=== PATIENT | female | born 1955 | race Caucasian/White ===

== ENCOUNTER 2021-07-02 16:56 | Inpatient (IN) | payer MEDICARE, OTHER ==
[2021-07-02] MEDS ORDERED: Ondansetron PF 4 MG/2 ML Vial ONE (18:12)
[2021-07-02 18:31] LABS: Hemoglobin 11.1 g/dL (12.0-15.5); Mean Corpuscular HGB CONC 30.1 g/dL (32.0-36.0); Mean Corpuscular Hemoglobin 24.2 pg (27.0-33.0); Mean Corpuscular Volume 80.6 fl (81.6-98.3); Mean Platelet Volume 11.5 fl (7.4-10.4); Platelet Count 550 10x3/uL (150-450); RBC Distribution Width 15.9 % (11.5-14.5); Red Blood Cell (RBC) Count 4.58 10x6/uL (3.90-5.03); White Blood Cell (WBC) Count 27.2 10x3/uL (3.5-10.5)
[2021-07-02 18:33] LABS: ALT (SGPT) 86 U/L (8-55); AST (SGOT) 91 U/L (5-34); Alkaline Phosphatase 154 U/L (40-110); Anion Gap 12 mmol/L (10-20); BUN (Urea Nitrogen) 14 mg/dL (9.8-20.1); Bilirubin, Total 0.5 mg/dL (0.2-1.2); Calc. Creatinine Clearance 0 mL/min (70-130); Carbon Dioxide 31 mmol/L (23-31); Chloride 90 mmol/L (98-107); Globulin 3.2 g/dL (2.4-3.5); Glucose 102 mg/dL (80-115); Protein, Total 6.2 g/dL (5.8-8.1); Sodium 129 mmol/L (136-145)
[2021-07-02 18:54] LABS: CKMB 1.1 ng/mL (0-6.6)
[2021-07-02 19:06] LABS: SARS-CoV-2 NAA Rapid Test Not Detected (NotDetected)
[2021-07-02 19:14] LABS: Lymphocytes 12 % (21-51); MDiff Complete? YES; Monocytes 9 % (0-10); Neutrophil 79 % (42-75)
[2021-07-02 19:15] LABS: Anisocytosis SLIGHT = 6-15 cells (100X) (0-5/hpf); Hypochromia SLIGHT = 6-15 cells (100X) (0-5/hpf); Poikilocytosis MODERATE=16-30 cells (100X) (0-5/hpf)
[2021-07-02 19:16] LABS: Elliptocytes SLIGHT = 2-5 cells (100X) (0-1/hpf); Ovalocytes MODERATE= 6-15 cells (100X) (0-1/hpf); Schistocytes SLIGHT = 2-5 cells (100X) (0-1/hpf)
[2021-07-02 19:18] LABS: Giant Platelets SLIGHT; Large Platelets SLIGHT; Platelet Morphology Comment Appears Increased
[2021-07-02] MEDS ORDERED: Azithromycin 500 MG VIAL ONE (20:55)
[2021-07-02] MEDS ORDERED: cefTRIAXone\\ROCEPHIN 1 GM VIAL ONE ×2 (20:55→23:44)
[2021-07-02 23:01] LABS: Bilirubin Neg (Negative); Blood, Urine Negative (Negative); Clarity Clear (Clear); Glucose, Urine (Dipstick) Normal (Negative); Ketone, Urine Negative (Negative); Leukocyte 100 (Negative); Nitrite Negative (Negative); Protein, Urine (Dipstick) 15 mg/dl (Neg-Trace); Urobilinogen Normal mg/dL (Less than 2); pH, Urine 6.5 (5.0-9.0)
[2021-07-02 23:31] LABS: Bacteria/HPF 2+ HPF (None Seen); RBC/HPF 0-3 HPF (0-3)
[2021-07-02 23:32] LABS: Transitional Epithelial 0-3 HPF (None Seen)
[2021-07-02] MEDS ORDERED: Senokot S 8.6-50 MG TAB PO PRN (23:53)
[2021-07-03 00:58] LABS: ALT (SGPT) 74 U/L (8-55); AST (SGOT) 71 U/L (5-34); Albumin 2.8 g/dL (3.4-4.8); Alkaline Phosphatase 136 U/L (40-110); Anion Gap 12 mmol/L (10-20); BUN (Urea Nitrogen) 11 mg/dL (9.8-20.1); Bilirubin, Total 0.3 mg/dL (0.2-1.2); Calc. Creatinine Clearance 0 mL/min (70-130); Calcium 8.6 mg/dL (7.8-10.44); Carbon Dioxide 29 mmol/L (23-31); Chloride 96 mmol/L (98-107); Glucose 100 mg/dL (80-115); Magnesium 1.8 mg/dL (1.6-2.6); Potassium 3.6 mmol/L (3.5-5.1); Protein, Total 5.8 g/dL (5.8-8.1); Sodium 133 mmol/L (136-145)
[2021-07-03] MEDS ORDERED: cefTRIAXone\\ROCEPHIN 1 GM in Sodium Chloride 0.9% 100 ML IVPB SCH (01:00)
[2021-07-03] MEDS: Lactated Ringer's 1,000 ML IV SCH ×2 (01:32→20:47)
[2021-07-03] MEDS: guaiFENesin/Codeine Phosphate 100 mg/10 mg 5 ml UD Cup PO PRN ×2 (01:33→20:48)
[2021-07-03 02:29] LABS: Legionella Urinary Ag Negative (Negative); Strep pneumo Urine Ag NEGATIVE (NEGATIVE)
[2021-07-03] MEDS ORDERED: FLU VACC QS2021-22(65YR UP)/PF 240 MCG/0.7 ML SYRINGE IM ONE (04:30)
[2021-07-03 04:32] LABS: Anion Gap 10 mmol/L (10-20); BUN (Urea Nitrogen) 10 mg/dL (9.8-20.1); Calc. Creatinine Clearance 100 mL/min (70-130); Calcium 8.3 mg/dL (7.8-10.44); Carbon Dioxide 29 mmol/L (23-31); Chloride 98 mmol/L (98-107); Glucose 112 mg/dL (80-115); Potassium 3.7 mmol/L (3.5-5.1); Sodium 133 mmol/L (136-145)
[2021-07-03 04:40] LABS: Troponin I 0.024 ng/mL (< 0.028)
[2021-07-03] MEDS: Acetaminophen 325 MG TAB PO PRN ×2 (05:10→16:43)
[2021-07-03 05:34] LABS: Hemoglobin 10.3 g/dL (12.0-15.5); Mean Corpuscular HGB CONC 30.4 g/dL (32.0-36.0); Mean Corpuscular Hemoglobin 24.8 pg (27.0-33.0); Mean Corpuscular Volume 81.5 fl (81.6-98.3); Mean Platelet Volume 11.3 fl (7.4-10.4); Platelet Count 473 10x3/uL (150-450); RBC Distribution Width 16.1 % (11.5-14.5); Red Blood Cell (RBC) Count 4.16 10x6/uL (3.90-5.03); White Blood Cell (WBC) Count 22.7 10x3/uL (3.5-10.5)
[2021-07-03 07:25] LABS: Band 10 % (5-11); Lymphocytes 9 % (21-51); Monocytes 10 % (0-10); Neutrophil 70 % (42-75); Reactive Lymphocytes 1 % (0-10)
[2021-07-03 07:27] LABS: Anisocytosis MODERATE=16-30 cells (100X) (0-5/hpf); Microcytosis MODERATE=15-30 cells (100X) (0-5/hpf); Ovalocytes MODERATE= 6-15 cells (100X) (0-1/hpf); Poikilocytosis SLIGHT = 6-15 cells (100X) (0-5/hpf)
[2021-07-03 07:28] LABS: Polychromasia SLIGHT = 2-3 cells (100X) (0-2/hpf)
[2021-07-03 07:30] LABS: Large Platelets MODERATE; Platelet Clumps SLIGHT; Platelet Morphology Comment Appears Increased; Toxic Granulation SLIGHT
[2021-07-03 07:31] LABS: MDiff Complete? YES
[2021-07-03] MEDS: Enoxaparin Sodium 40 MG/0.4 ML SYRINGE SC SCH (09:42)
[2021-07-03] MEDS: cefTRIAXone\\ROCEPHIN 2 GM in Sodium Chloride 0.9% 100 ML IVPB SCH (20:49)
[2021-07-03] MEDS: Azithromycin 500 MG in Sodium Chloride 0.9% 250 ML 250 ML IVPB SCH (20:49)
[2021-07-03] MEDS ORDERED: Communication Order-Pharmacy FS SCH (23:46)
[2021-07-04] MEDS: guaiFENesin/Codeine Phosphate 100 mg/10 mg 5 ml UD Cup PO PRN ×2 (03:25→20:15)
[2021-07-04 05:09] LABS: Anion Gap 13 mmol/L (10-20); BUN (Urea Nitrogen) 7 mg/dL (9.8-20.1); CRP (Inflammatory) 8.95 mg/dL (= or < 0.5); Calc. Creatinine Clearance 107 mL/min (70-130); Calcium 8.5 mg/dL (7.8-10.44); Carbon Dioxide 29 mmol/L (23-31); Chloride 99 mmol/L (98-107); Glucose 95 mg/dL (80-115); Potassium 4.2 mmol/L (3.5-5.1); Sodium 137 mmol/L (136-145)
[2021-07-04 05:41] LABS: #Basophils 0.1 10x3/uL (0.0-0.2); #Eosinphils 0.3 10x3/uL (0.0-0.5); #Monocytes 1.4 10x3/uL (0.0-1.1); #Neutrophils 15.3 10x3/uL (1.5-8.4); %Basophils 0.3 % (0.0-2.0); %Eosinophils 1.5 % (0.0-6.0); %Lymphocytes 11.1 % (18.0-47.0); %Monocytes 7.3 % (0.0-10.0); %Neutrophils 78.4 % (40.0-75.0); Hemoglobin 10.1 g/dL (12.0-15.5); Mean Corpuscular HGB CONC 29.6 g/dL (32.0-36.0); Mean Corpuscular Hemoglobin 24.7 pg (27.0-33.0); Mean Corpuscular Volume 83.4 fl (81.6-98.3); Mean Platelet Volume 11.1 fl (7.4-10.4); Platelet Count 471 10x3/uL (150-450); RBC Distribution Width 16.3 % (11.5-14.5); Red Blood Cell (RBC) Count 4.09 10x6/uL (3.90-5.03); White Blood Cell (WBC) Count 19.5 10x3/uL (3.5-10.5)
[2021-07-04] MEDS: Acetaminophen 325 MG TAB PO PRN (10:24)
[2021-07-04] MEDS: Enoxaparin Sodium 40 MG/0.4 ML SYRINGE SC SCH (10:24)
[2021-07-04] MEDS: Carvedilol 3.125 MG TAB PO SCH (16:07)
[2021-07-04] MEDS: cefTRIAXone\\ROCEPHIN 2 GM in Sodium Chloride 0.9% 100 ML IVPB SCH (20:16)
[2021-07-04] MEDS: Azithromycin 500 MG in Sodium Chloride 0.9% 250 ML 250 ML IVPB SCH (21:29)
[2021-07-04] MEDS ORDERED: Ondansetron ODT 4 MG TAB PO PRN (21:47)
[2021-07-05] MEDS: Acetaminophen 325 MG TAB PO PRN ×3 (02:11→15:59)
[2021-07-05 05:29] LABS: #Basophils 0.1 10x3/uL (0.0-0.2); #Eosinphils 0.3 10x3/uL (0.0-0.5); #Neutrophils 14.4 10x3/uL (1.5-8.4); %Basophils 0.3 % (0.0-2.0); %Eosinophils 1.4 % (0.0-6.0); %Lymphocytes 9.3 % (18.0-47.0); %Monocytes 5.6 % (0.0-10.0); %Neutrophils 81.9 % (40.0-75.0); Hemoglobin 10.5 g/dL (12.0-15.5); Mean Corpuscular HGB CONC 29.1 g/dL (32.0-36.0); Mean Corpuscular Hemoglobin 24.1 pg (27.0-33.0); Mean Platelet Volume 10.7 fl (7.4-10.4); Platelet Count 472 10x3/uL (150-450); RBC Distribution Width 16.3 % (11.5-14.5); Red Blood Cell (RBC) Count 4.35 10x6/uL (3.90-5.03); White Blood Cell (WBC) Count 17.6 10x3/uL (3.5-10.5)
[2021-07-05 05:38] LABS: Anion Gap 16 mmol/L (10-20); BUN (Urea Nitrogen) 6 mg/dL (9.8-20.1); Calc. Creatinine Clearance 114 mL/min (70-130); Calcium 8.7 mg/dL (7.8-10.44); Carbon Dioxide 27 mmol/L (23-31); Chloride 98 mmol/L (98-107); Glucose 93 mg/dL (80-115); Potassium 4.1 mmol/L (3.5-5.1); Sodium 137 mmol/L (136-145)
[2021-07-05 07:38] LABS: Hypochromia MODERATE=16-30 cells (100X) (0-5/hpf)
[2021-07-05 07:39] LABS: Ovalocytes SLIGHT = 2-5 cells (100X) (0-1/hpf); Platelet Morphology Comment Appears Increased
[2021-07-05] MEDS: Enoxaparin Sodium 40 MG/0.4 ML SYRINGE SC SCH (08:58)
[2021-07-05] MEDS: Carvedilol 3.125 MG TAB PO SCH ×2 (08:58→16:00)
[2021-07-05] MEDS ORDERED: Furosemide 40 MG TAB PO SCH (20:00)
[2021-07-05] MEDS: cefTRIAXone\\ROCEPHIN 2 GM in Sodium Chloride 0.9% 100 ML IVPB SCH (20:51)
[2021-07-05] MEDS: Azithromycin 500 MG in Sodium Chloride 0.9% 250 ML 250 ML IVPB SCH (21:50)
[2021-07-06] MEDS: Acetaminophen 325 MG TAB PO PRN ×2 (01:48→06:07)
[2021-07-06 05:11] LABS: Hemoglobin 10.7 g/dL (12.0-15.5); Mean Corpuscular HGB CONC 29.3 g/dL (32.0-36.0); Mean Corpuscular Hemoglobin 24.3 pg (27.0-33.0); Mean Corpuscular Volume 82.8 fl (81.6-98.3); Mean Platelet Volume 10.6 fl (7.4-10.4); Platelet Count 485 10x3/uL (150-450); RBC Distribution Width 16.3 % (11.5-14.5); Red Blood Cell (RBC) Count 4.41 10x6/uL (3.90-5.03); White Blood Cell (WBC) Count 18.3 10x3/uL (3.5-10.5)
[2021-07-06 05:17] LABS: Anion Gap 14 mmol/L (10-20); BUN (Urea Nitrogen) 7 mg/dL (9.8-20.1); Calc. Creatinine Clearance 112 mL/min (70-130); Calcium 9.2 mg/dL (7.8-10.44); Carbon Dioxide 35 mmol/L (23-31); Chloride 93 mmol/L (98-107); Glucose 98 mg/dL (80-115); Potassium 3.6 mmol/L (3.5-5.1); Sodium 138 mmol/L (136-145)
[2021-07-06 07:36] LABS: MDiff Complete? YES
[2021-07-06 07:37] LABS: Hypochromia SLIGHT = 6-15 cells (100X) (0-5/hpf)
[2021-07-06 07:38] LABS: Platelet Morphology Comment Appears Adequate
[2021-07-06] MEDS: Furosemide 40 MG TAB PO SCH (08:51)
[2021-07-06] MEDS: Enoxaparin Sodium 40 MG/0.4 ML SYRINGE SC SCH (08:51)
[2021-07-06] MEDS: Carvedilol 6.25 MG TAB PO SCH ×2 (08:51→18:07)
[2021-07-06] MEDS ORDERED: Furosemide 40 MG/4 ML VIAL SLOW IVP SCH (14:00)
[2021-07-06] MEDS ORDERED: Vancomycin 1.5 GRAM/300 ML BAG 1.5 GM in Premix Bag 1 BAG IVPB SCH (15:30)
[2021-07-06] MEDS: Cefepime 1 GM in Sodium Chloride 0.9% 100 ML IVPB SCH (21:48)
[2021-07-06] MEDS: Fioricet 325/50/40 mg Tablet PO PRN (21:57)
[2021-07-07] MEDS: Vancomycin HCl 1 GM in Sodium Chloride 0.9% 250 ML 250 ML IVPB SCH ×2 (03:45→17:31)
[2021-07-07 04:24] LABS: #Basophils 0.1 10x3/uL (0.0-0.2); #Eosinphils 0.2 10x3/uL (0.0-0.5); #Neutrophils 10.1 10x3/uL (1.5-8.4); %Basophils 0.4 % (0.0-2.0); %Eosinophils 1.3 % (0.0-6.0); %Lymphocytes 15.6 % (18.0-47.0); %Monocytes 7.4 % (0.0-10.0); %Neutrophils 74.1 % (40.0-75.0); Hemoglobin 10.8 g/dL (12.0-15.5); Mean Corpuscular Hemoglobin 24.4 pg (27.0-33.0); Mean Corpuscular Volume 81.4 fl (81.6-98.3); Mean Platelet Volume 10.8 fl (7.4-10.4); Platelet Count 494 10x3/uL (150-450); RBC Distribution Width 16.2 % (11.5-14.5); Red Blood Cell (RBC) Count 4.42 10x6/uL (3.90-5.03); White Blood Cell (WBC) Count 13.6 10x3/uL (3.5-10.5)
[2021-07-07 04:38] LABS: BUN (Urea Nitrogen) 7 mg/dL (9.8-20.1); CRP (Inflammatory) 4.56 mg/dL (= or < 0.5); Calc. Creatinine Clearance 110 mL/min (70-130); Calcium 8.6 mg/dL (7.8-10.44); Glucose 97 mg/dL (80-115)
[2021-07-07 04:46] LABS: Anion Gap 17 mmol/L (10-20); Carbon Dioxide 35 mmol/L (23-31); Chloride 90 mmol/L (98-107); Potassium 3.3 mmol/L (3.5-5.1); Sodium 139 mmol/L (136-145)
[2021-07-07] MEDS ORDERED: Potassium Chloride 20 MEQ TAB PO SCH (08:00)
[2021-07-07] MEDS: Cefepime 1 GM in Sodium Chloride 0.9% 100 ML IVPB SCH ×2 (08:59→21:32)
[2021-07-07] MEDS: Enoxaparin Sodium 40 MG/0.4 ML SYRINGE SC SCH (09:00)
[2021-07-07] MEDS: Furosemide 40 MG TAB PO SCH (09:00)
[2021-07-07] MEDS: Carvedilol 6.25 MG TAB PO SCH ×2 (09:00→17:31)
[2021-07-07] MEDS: guaiFENesin/Codeine Phosphate 100 mg/10 mg 5 ml UD Cup PO PRN (21:28)
[2021-07-07] MEDS: Fioricet 325/50/40 mg Tablet PO PRN (23:40)
[2021-07-08] MEDS: Vancomycin HCl 1 GM in Sodium Chloride 0.9% 250 ML 250 ML IVPB SCH ×2 (03:43→17:34)
[2021-07-08] MEDS: Fioricet 325/50/40 mg Tablet PO PRN (03:45)
[2021-07-08 05:26] LABS: #Eosinphils 0.2 10x3/uL (0.0-0.5); #Neutrophils 7.7 10x3/uL (1.5-8.4); %Basophils 0.3 % (0.0-2.0); %Eosinophils 1.6 % (0.0-6.0); %Lymphocytes 21.5 % (18.0-47.0); %Monocytes 8.7 % (0.0-10.0); %Neutrophils 66.9 % (40.0-75.0); Hemoglobin 10.5 g/dL (12.0-15.5); Mean Corpuscular HGB CONC 29.7 g/dL (32.0-36.0); Mean Corpuscular Hemoglobin 24.5 pg (27.0-33.0); Mean Corpuscular Volume 82.5 fl (81.6-98.3); Mean Platelet Volume 10.9 fl (7.4-10.4); Platelet Count 474 10x3/uL (150-450); RBC Distribution Width 16.4 % (11.5-14.5); Red Blood Cell (RBC) Count 4.29 10x6/uL (3.90-5.03); White Blood Cell (WBC) Count 11.6 10x3/uL (3.5-10.5)
[2021-07-08 05:31] LABS: ALT (SGPT) 25 U/L (8-55); AST (SGOT) 20 U/L (5-34); Albumin 2.6 g/dL (3.4-4.8); Alkaline Phosphatase 83 U/L (40-110); BUN (Urea Nitrogen) 8 mg/dL (9.8-20.1); Bilirubin, Total 0.2 mg/dL (0.2-1.2); CRP (Inflammatory) 2.86 mg/dL (= or < 0.5); Calc. Creatinine Clearance 119 mL/min (70-130); Calcium 8.4 mg/dL (7.8-10.44); Globulin 3.3 g/dL (2.4-3.5); Glucose 99 mg/dL (80-115); Protein, Total 5.9 g/dL (5.8-8.1)
[2021-07-08 05:39] LABS: Anion Gap 18 mmol/L (10-20); Carbon Dioxide 35 mmol/L (23-31); Chloride 92 mmol/L (98-107); Potassium 3.5 mmol/L (3.5-5.1); Sodium 141 mmol/L (136-145)
[2021-07-08 05:53] LABS: Hypochromia SLIGHT = 6-15 cells (100X) (0-5/hpf)
[2021-07-08 05:54] LABS: Ovalocytes SLIGHT = 2-5 cells (100X) (0-1/hpf); Platelet Morphology Comment Appears Increased
[2021-07-08 06:14] LABS: INR-International Normal Ratio 1.1; PTT 28.5 sec (22.0-33.0)
[2021-07-08] MEDS: Cefepime 1 GM in Sodium Chloride 0.9% 100 ML IVPB SCH ×2 (08:49→21:37)
[2021-07-08] MEDS: Carvedilol 6.25 MG TAB PO SCH ×2 (08:49→17:33)
[2021-07-08] MEDS: Enoxaparin Sodium 40 MG/0.4 ML SYRINGE SC SCH (08:49)
[2021-07-08] MEDS ORDERED: Sodium Bicarbonate 2.5 MEQ/5 ML VIAL ONE (09:58)
[2021-07-08] MEDS ORDERED: Lidocaine 1% PF 5 ML VIAL ONE (09:58)
[2021-07-08 11:39] LABS: BF Color Red; Body Fluid Source Thoracentesis Fluid; Clarity Hazy (Clear); Tube # EDTA
[2021-07-08] MEDS: Furosemide 40 MG TAB PO SCH (11:44)
[2021-07-08 12:15] LABS: BF Segmented Neutrophils 52 %; Cell Count Non Hematic 14 %; Lymphocytes 34 %
[2021-07-08 14:35] LABS: Pleural Fluid, Protein 2.8 g/dL
[2021-07-08 15:34] LABS: Vancomycin, Trough 16.4 ug/mL
[2021-07-09] MEDS: Vancomycin HCl 1 GM in Sodium Chloride 0.9% 250 ML 250 ML IVPB SCH ×2 (03:53→16:58)
[2021-07-09] MEDS: Furosemide 40 MG TAB PO SCH (07:26)
[2021-07-09] MEDS: Carvedilol 6.25 MG TAB PO SCH ×2 (09:23→16:58)
[2021-07-09] MEDS: Enoxaparin Sodium 40 MG/0.4 ML SYRINGE SC SCH (09:24)
[2021-07-09] MEDS: Cefepime 1 GM in Sodium Chloride 0.9% 100 ML IVPB SCH ×2 (09:24→23:18)
[2021-07-09] MEDS: Acetaminophen 325 MG TAB PO PRN (11:09)
[2021-07-09] MEDS: Rosuvastatin 20 MG TAB PO SCH (21:55)
[2021-07-10] MEDS: Vancomycin HCl 1 GM in Sodium Chloride 0.9% 250 ML 250 ML IVPB SCH (04:07)
[2021-07-10 04:51] LABS: Vancomycin, Trough 20.4 ug/mL
[2021-07-10] MEDS: Vancomycin HCl 750 MG in Sodium Chloride 0.9% 250 ML 250 ML IVPB SCH ×2 (05:29→18:56)
[2021-07-10] MEDS: Cefepime 1 GM in Sodium Chloride 0.9% 100 ML IVPB SCH ×2 (08:27→22:18)
[2021-07-10] MEDS: Enoxaparin Sodium 40 MG/0.4 ML SYRINGE SC SCH (08:28)
[2021-07-10] MEDS: Carvedilol 6.25 MG TAB PO SCH ×2 (08:28→18:56)
[2021-07-10 12:30] LABS: ANA Symphony (Qualitative) Negative (Negative); ANA Symphony (Quantitative) 0.3 Ratio (< 0.7 Negative); dsDNA IgG Antibody 1.1 IU/mL (<10 Negative)
[2021-07-10 17:42] LABS: SARS-CoV-2 PCR by NAA Not Detected (NotDetected)
[2021-07-10] MEDS: Rosuvastatin 20 MG TAB PO SCH (21:14)
[2021-07-11 04:27] LABS: Anion Gap 9 mmol/L (10-20); BUN (Urea Nitrogen) 10 mg/dL (9.8-20.1); Calc. Creatinine Clearance 123 mL/min (70-130); Calcium 8.8 mg/dL (7.8-10.44); Carbon Dioxide 37 mmol/L (23-31); Chloride 96 mmol/L (98-107); Glucose 102 mg/dL (80-115); Potassium 3.8 mmol/L (3.5-5.1); Sodium 138 mmol/L (136-145)
[2021-07-11 04:34] LABS: #Eosinphils 0.1 10x3/uL (0.0-0.5); #Monocytes 0.9 10x3/uL (0.0-1.1); #Neutrophils 7.5 10x3/uL (1.5-8.4); %Basophils 0.2 % (0.0-2.0); %Eosinophils 1.2 % (0.0-6.0); %Lymphocytes 22.9 % (18.0-47.0); %Monocytes 7.8 % (0.0-10.0); %Neutrophils 67.3 % (40.0-75.0); Hemoglobin 9.7 g/dL (12.0-15.5); Mean Corpuscular HGB CONC 28.9 g/dL (32.0-36.0); Mean Corpuscular Volume 83.2 fl (81.6-98.3); Mean Platelet Volume 10.4 fl (7.4-10.4); Platelet Count 417 10x3/uL (150-450); RBC Distribution Width 16.1 % (11.5-14.5); Red Blood Cell (RBC) Count 4.04 10x6/uL (3.90-5.03); White Blood Cell (WBC) Count 11.1 10x3/uL (3.5-10.5)
[2021-07-11] MEDS: Vancomycin HCl 750 MG in Sodium Chloride 0.9% 250 ML 250 ML IVPB SCH ×2 (04:45→17:03)
[2021-07-11 06:16] LABS: Platelet Morphology Comment Appears Adequate
[2021-07-11 06:18] LABS: Anisocytosis SLIGHT = 6-15 cells (100X) (0-5/hpf); Elliptocytes SLIGHT = 2-5 cells (100X) (0-1/hpf); Stomatocytes SLIGHT = 2-5 cells (100X) (0-1/hpf); Target Cells SLIGHT = 2-5 cells (100X) (0-1/hpf)
[2021-07-11] MEDS: Cefepime 1 GM in Sodium Chloride 0.9% 100 ML IVPB SCH ×2 (08:39→21:33)
[2021-07-11] MEDS: Carvedilol 6.25 MG TAB PO SCH ×2 (08:39→17:04)
[2021-07-11] MEDS: Enoxaparin Sodium 40 MG/0.4 ML SYRINGE SC SCH (08:40)
[2021-07-11 16:23] LABS: Vancomycin, Trough 14.8 ug/mL
[2021-07-11] MEDS: Rosuvastatin 20 MG TAB PO SCH (21:34)
[2021-07-12 04:34] LABS: BUN (Urea Nitrogen) 8 mg/dL (9.8-20.1); Calc. Creatinine Clearance 127 mL/min (70-130)
[2021-07-12] MEDS: Vancomycin HCl 750 MG in Sodium Chloride 0.9% 250 ML 250 ML IVPB SCH ×2 (05:35→17:29)
[2021-07-12] MEDS: Carvedilol 6.25 MG TAB PO SCH ×2 (07:47→17:33)
[2021-07-12] MEDS: Enoxaparin Sodium 40 MG/0.4 ML SYRINGE SC SCH (09:09)
[2021-07-12] MEDS: Cefepime 1 GM in Sodium Chloride 0.9% 100 ML IVPB SCH ×2 (10:15→21:00)
[2021-07-12] MEDS: Acetaminophen 500 MG TAB PO SCH (15:22)
[2021-07-12] MEDS: Rosuvastatin 20 MG TAB PO SCH (21:00)
[2021-07-12] MEDS: metroNIDAZOLE 500 MG in Premix Bag 1 BAG IVPB SCH (23:57)
[2021-07-13] MEDS: Acetaminophen 500 MG TAB PO SCH ×4 (00:19→21:04)
[2021-07-13 04:17] LABS: BUN (Urea Nitrogen) 8 mg/dL (9.8-20.1); Calc. Creatinine Clearance 129 mL/min (70-130)
[2021-07-13] MEDS: metroNIDAZOLE 500 MG in Premix Bag 1 BAG IVPB SCH ×3 (06:07→17:20)
[2021-07-13] MEDS: Carvedilol 6.25 MG TAB PO SCH ×2 (09:04→18:07)
[2021-07-13] MEDS: Enoxaparin Sodium 40 MG/0.4 ML SYRINGE SC SCH (09:04)
[2021-07-13] MEDS: cefTRIAXone\\ROCEPHIN 2 GM in Sodium Chloride 0.9% 100 ML IVPB SCH (21:03)
[2021-07-13] MEDS: Rosuvastatin 20 MG TAB PO SCH (21:05)
[2021-07-14] MEDS: metroNIDAZOLE 500 MG in Premix Bag 1 BAG IVPB SCH ×4 (00:19→17:43)
[2021-07-14] MEDS: Acetaminophen 500 MG TAB PO SCH ×3 (09:16→20:56)
[2021-07-14] MEDS: Carvedilol 6.25 MG TAB PO SCH ×2 (09:17→17:44)
[2021-07-14] MEDS: Enoxaparin Sodium 40 MG/0.4 ML SYRINGE SC SCH (09:17)
[2021-07-14] MEDS: Rosuvastatin 20 MG TAB PO SCH (20:56)
[2021-07-14] MEDS: cefTRIAXone\\ROCEPHIN 2 GM in Sodium Chloride 0.9% 100 ML IVPB SCH (20:57)
[2021-07-15] MEDS: metroNIDAZOLE 500 MG in Premix Bag 1 BAG IVPB SCH ×3 (00:07→13:00)
[2021-07-15] MEDS: Acetaminophen 500 MG TAB PO SCH ×2 (05:58→13:00)
[2021-07-15 08:58] VITALS: BP 141/67; TEMP 97.9
[2021-07-15] MEDS: Enoxaparin Sodium 40 MG/0.4 ML SYRINGE SC SCH (09:41)
[2021-07-15] MEDS: Carvedilol 6.25 MG TAB PO SCH (09:41)
[2021-07-15] MEDS ORDERED: cefTRIAXone\\ROCEPHIN 2 GM in Sodium Chloride 0.9% 100 ML IVPB SCH (12:30)
== END 2021-07-15 15:00 | disposition home or self-care (01) | DRG 871 ==
LOC: CSHERS 16:56 → CSHTELE 07-03 00:47
PROVIDERS: ADMIT Family Medicine; ATTEND Hospitalist
PROC: 0W993ZZ Drainage of Right Pleural Cavity, Percutaneous Approach (ICD-10-PCS; principal; 2021-07-08)
DX: A41.9 Sepsis, unspecified organism (principal); J18.9 Pneumonia, unspecified organism; J96.01 Acute respiratory failure with hypoxia; J90 Pleural effusion, not elsewhere classified; E78.5 Hyperlipidemia, unspecified; M19.90 Unspecified osteoarthritis, unspecified site; Z20.822 Contact with and (suspected) exposure to COVID-19; E78.00 Pure hypercholesterolemia, unspecified; Z98.890 Other specified postprocedural states; Z87.891 Personal history of nicotine dependence; Z90.49 Acquired absence of other specified parts of digestive tract
CPT/HCPCS: 32555; 36415; 71045; 71046; 71275; 80048; 80053; 80202; 81003; 81015; 82553; 82565; 83605; 83615; 83735; 83880; 84145; 84157; 84484; 84520; 85025; 85610; 85652; 85730; 86038; 86140; 86225; 87070; 87205; 87449; 87633; 87804; 87899; 88112; 88305; 89051; 93005; 93306; 94760; 96365; 96366; 96367; 96375; J0456; J0692; J0696; J1650; J1940; J2405; J3370; J3490; J7050; J7120; Q0162; U0002; U0003; U0005

== ENCOUNTER 2021-10-28 10:51 | Outpatient (CLI) | payer MEDICARE, OTHER | END 2021-10-28 10:52 | disposition home or self-care (01) | LOC: CSHMAMMO 10:51 | PROVIDERS: ATTEND Student in an Organized Health Care Education/Training Program | DX: Z13.820 Encounter for screening for osteoporosis (principal); Z78.0 Asymptomatic menopausal state; M81.0 Age-related osteoporosis without current pathological fracture; M85.851 Other specified disorders of bone density and structure, right thigh; M85.852 Other specified disorders of bone density and structure, left thigh | CPT/HCPCS: 77080 ==

== ENCOUNTER 2023-01-30 12:01 | Outpatient (CLI) | payer MEDICARE, OTHER | END 2023-01-30 12:02 | disposition home or self-care (01) | LOC: CSHRAD 12:01 | PROVIDERS: ATTEND Internal Medicine | DX: R06.02 Shortness of breath (principal); R09.02 Hypoxemia; C49.A1 Gastrointestinal stromal tumor of esophagus; K22.89 Other specified disease of esophagus; J90 Pleural effusion, not elsewhere classified | CPT/HCPCS: 36415; 71046; 80053 ==

== ENCOUNTER 2023-04-22 07:52 | Outpatient (CLI) | payer MEDICARE, OTHER ==
[2023-04-22] MEDS ORDERED: Iopamidol 300 61% 100 ML VIAL FS ONE (09:59)
== END 2023-04-22 07:53 | disposition home or self-care (01) ==
LOC: CSHCT 07:52
PROVIDERS: ATTEND Internal Medicine
DX: C49.A1 Gastrointestinal stromal tumor of esophagus (principal); K22.89 Other specified disease of esophagus; J90 Pleural effusion, not elsewhere classified; R59.0 Localized enlarged lymph nodes; R91.8 Other nonspecific abnormal finding of lung field
CPT/HCPCS: 71260; 74177

== ENCOUNTER 2023-07-22 08:25 | Outpatient (CLI) | payer MEDICARE | END 2023-07-22 08:26 | disposition home or self-care (01) | LOC: CSHCT 08:25 | PROVIDERS: ATTEND Internal Medicine | DX: C49.A1 Gastrointestinal stromal tumor of esophagus (principal); J98.59 Other diseases of mediastinum, not elsewhere classified; J94.8 Other specified pleural conditions; R59.0 Localized enlarged lymph nodes | CPT/HCPCS: 71260; 74177; 82565 ==

== ENCOUNTER 2024-06-01 08:06 | Outpatient (CLI) | payer MEDICARE, OTHER | END 2024-06-01 08:07 | disposition home or self-care (01) | LOC: CSHCT 08:06 | PROVIDERS: ATTEND Internal Medicine | DX: C49.A1 Gastrointestinal stromal tumor of esophagus (principal); D50.8 Other iron deficiency anemias; R91.8 Other nonspecific abnormal finding of lung field; J90 Pleural effusion, not elsewhere classified | CPT/HCPCS: 36415; 71260; 74177; 82565 ==

== ENCOUNTER 2024-07-27 08:05 | Outpatient (CLI) | payer MEDICARE, OTHER ==
[2024-07-27] MEDS ORDERED: Iopamidol 300 61% 100 ML VIAL FS ONE (10:32)
== END 2024-07-27 08:06 | disposition home or self-care (01) ==
LOC: CSHCT 08:05
PROVIDERS: ATTEND Internal Medicine
DX: C49.A1 Gastrointestinal stromal tumor of esophagus (principal); D50.8 Other iron deficiency anemias; J90 Pleural effusion, not elsewhere classified; R91.8 Other nonspecific abnormal finding of lung field; Z98.890 Other specified postprocedural states
CPT/HCPCS: 71260; 82565

== ENCOUNTER 2025-01-27 08:26 | Outpatient (CLI) | payer MEDICARE, OTHER | END 2025-01-27 08:27 | disposition home or self-care (01) | LOC: CSHMRI 08:26 | PROVIDERS: ATTEND Internal Medicine | DX: M48.8X2 Other specified spondylopathies, cervical region (principal); N28.89 Other specified disorders of kidney and ureter; C49.A1 Gastrointestinal stromal tumor of esophagus; D50.8 Other iron deficiency anemias; N28.1 Cyst of kidney, acquired; M47.812 Spondylosis without myelopathy or radiculopathy, cervical region; Q76.49 Other congenital malformations of spine, not associated with scoliosis; M48.02 Spinal stenosis, cervical region; R16.0 Hepatomegaly, not elsewhere classified; D18.03 Hemangioma of intra-abdominal structures | CPT/HCPCS: 72156; 74183 ==